=== PATIENT | female | born 1960 | race Caucasian/White ===

== ENCOUNTER 2018-10-11 08:23 | Emergency (ER) | payer BC ==
[~2018-10-11] VITALS: Ht 160 cm; Wt 66.2 kg
--- OUTSIDE RECORDS SUMMARY | 2018-10-11 08:25 | XMS REPORT | Clinical Summary ---
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 Last Filed Vital Signs Not on file Plan of Treatment Health Maintenance Due Date Last Done Comments BREAST CANCER SCREENING 2009 COLON CANCER SCREENING 2009 SHINGLES VACCINES (#1) 2009 INFLUENZA VACCINE 12/04/2018 Results Not on fileafter 10/10/2017 Insurance Type Payer Benefit Subscriber ID Effective Phone Address Plan / Dates Group PPO BCBS BCBS xxxxxxxxxxxx [id number] CHOICE resent PPO/TIARA AUGUSTE PPO Advance Directives Patient has advance care planning documents on file. For more information, jorge serrano contact: Carlton Summers [address] [place] [address]
[2018-10-11 08:28] VITALS: BP 5/3
[2018-10-11 09:13] LABS: BASOPHILS % 0.3 % (0.0-1.0); BILIRUBIN,URINE NEGATIVE (NEGATIVE); CLARITY,URINE CLEAR (CLEAR); COLOR,URINE YELLOW (YELLOW); EOSINOPHILS # (AUTO) 0.1 (0.0-0.4); HEMATOCRIT 38.9 % (34.2-44.1); HEMOGLOBIN 13.5 g/dL (12.0-16.0); KETONES,URINE NEGATIVE (NEGATIVE); LEUKOCYTE ESTERASE ,URINE NEGATIVE (NEGATIVE); LYMPHOCYTES % 26.3 % (18.0-39.1); MEAN CORPUSCULAR HEMOGLOBIN 32.5 pg (28-32); MEAN CORPUSCULAR HGB CONC 34.7 g/dL (31-35); MEAN CORPUSCULAR VOLUME 93.7 fL (81-99); MONOCYTES # (AUTO) 0.9 (0.2-0.8); MONOCYTES % 7.5 % (4.4-11.3); NEUTROPHILS # (AUTO) 7.4 (2.1-6.9); NEUTROPHILS % 64.6 % (38.7-80.0); NITRITE,URINE NEGATIVE (NEGATIVE); PLATELET COUNT 265 x10e3/uL (140-360); PROTEIN,URINE DIPSTICK NEGATIVE (NEGATIVE); RED BLOOD COUNT 4.15 x10e6/uL (3.6-5.1); RED CELL DISTRIBUTION WIDTH 11.9 % (11.7-14.4); URINE UROBILINOGEN 0.2 mg/dL (0.2 - 1)
[2018-10-11] MEDS ORDERED: ASPIRIN 81 MG CHEW TAB PO ONE (09:15)
[2018-10-11] MEDS ORDERED: KETOROLAC TROMETHAMINE 30 MG/ML VIAL IV NR (09:21)
[2018-10-11 09:25] LABS: BACTERIA,URINE FEW /HPF; EPITHELIAL CELLS,URINE FEW /LPF; RBC,URINE 0-5 /HPF (0-5); WBC,URINE (MAN) 0-5 /HPF (0-5)
[2018-10-11] MEDS ORDERED: KETOROLAC TROMETHAMINE 30 MG/ML VIAL ONE (09:27)
[2018-10-11] MEDS ORDERED: DIAZEPAM 2 MG TAB PO ONE (09:30)
[2018-10-11 09:32] LABS: ALANINE AMINOTRANSFERASE 49 IU/L (0-55); ALBUMIN 3.7 g/dL (3.5-5.0); ALBUMIN/GLOBULIN RATIO 1.2 (0.8-2.0); ALKALINE PHOSPHATASE 129 IU/L (40-150); ANION GAP 12.3 mmol/L (8-16); BLOOD UREA NITROGEN 6 mg/dL (7-26); BUN/CREATININE RATIO 7 (6-25); CALCIUM 9.5 mg/dL (8.4-10.2); CARBON DIOXIDE 27 mmol/L (22-29); CHLORIDE 102 mmol/L (98-107); CREATINE KINASE 48 IU/L (29-168); CREATININE, SERUM 0.82 mg/dL (0.57-1.11); EST GLOMERULAR FILTRATION RATE > 60 ML/MIN (60-); GLUCOSE 108 mg/dL (74-118); POTASSIUM 3.3 mmol/L (3.5-5.1); SODIUM 138 mmol/L (136-145)
--- NOTE | 2018-10-11 10:26 | Diagnostic Imaging Report ---
EXAMINATION: CHEST SINGLE (PORTABLE) INDICATION: ^chest pain/sob ^[id number] ^[id number] COMPARISON: None FINDINGS: AP view TUBES and LINES: None. LUNGS: Lungs are well inflated. Increased interstitial lung markings in both lung bases and perihilar regions. Bilateral hilar peribronchial wall thickening. No lobar consolidations. PLEURA: No pleural effusion or pneumothorax. HEART AND MEDIASTINUM: The cardiomediastinal silhouette is unremarkable.. BONES AND SOFT TISSUES: No acute osseous lesion. Soft tissues are unremarkable. UPPER ABDOMEN: No free air under the diaphragm. IMPRESSION: Radiographic findings suggestive of atypical infection or interstitial edema. Cardiac silhouette is within normal limits. Signed by: Dr. Nahomi Berry M.D. on 10/11/2018 10:23 AM
[2018-10-11] MEDS ORDERED: POTASSIUM CHLORIDE 20MEQ/15ML UDC PO NR (10:45)
== END 2018-10-11 11:28 | disposition home or self-care (01) ==
LOC: ER 08:23
DX: R07.89 Other chest pain (principal); J12.9 Viral pneumonia, unspecified; E87.6 Hypokalemia; K52.9 Noninfective gastroenteritis and colitis, unspecified; E78.5 Hyperlipidemia, unspecified
CPT/HCPCS: 36415; 71045; 80053; 81001; 82550; 82553; 84484; 85025; 93005; 99284; J1885